=== PATIENT | male | born 1960 | race Caucasian/White ===

== ENCOUNTER 2021-12-13 13:38 | Emergency (ER) | payer MEDICARE, SELFPAY ==
[2021-12-13 13:39] VITALS: BP 150/93; PULSE 113; RESP 16; TEMP 37; O2SAT 98; BMI 22.7
== END 2021-12-13 14:15 | disposition left against medical advice (07) ==
LOC: ED 14:16
PROVIDERS: Emergency Provider Emergency Medicine; Visit Provider Emergency Medicine
DX: T14.90XA Injury, unspecified, initial encounter (principal)